=== PATIENT | male | born 1950 | race Caucasian/White ===

== ENCOUNTER → 2019-03-18 09:59 | Outpatient (CLI) | payer MEDICARE, OTHER, SELFPAY ==
[2019-03-18 11:43] LABS: Add Manual Diff / Slide Review NO; Basophils Absolute Auto 0 /uL (0-100); Basophils Percent Auto 0.7 % (0-2); Eosinophils Absolute Auto 100 /uL (0-450); Eosinophils Percent Auto 1.7 % (2-4); Hematocrit 51.5 % (41-53); Hemoglobin 17.3 g/dL (13.5-17.5); Lymphocytes Absolute Auto 1400 /uL (1100-4500); Lymphocytes Percent Auto 22.7 % (25-40); Mean Corpuscular HGB Conc 33.6 % (30-36); Mean Corpuscular Hemoglobin 36.5 PG (26-34); Mean Corpuscular Volume 108.7 fL (80-100); Monocytes Absolute Auto 600 /uL (0-900); Monocytes Percent Auto 9.7 % (3-14); Neutrophils Absolute Auto 4100 /uL (1500-7000); Neutrophils Percent Auto 65.2 % (50-75); Platelet Count 252 X10^3/uL (150-400); Red Blood Cell Count 4.74 X10^6/uL (4.5-5.9); Red Cell Distribution Width 13.6 % (11.6-14.8); White Blood Cell Count 6.3 X10^3/uL (4.5-11.0)
[2019-03-18 12:14] LABS: Carbon Dioxide 28 mmol/L (22-32); Chloride 100 mmol/L (98-107); HEMOLYSIS < 15 (0-50); Potassium 3.8 mmol/L (3.4-5.1); Sodium 137 mmol/L (137-145)
== END ==
PROVIDERS: PCP Physician Assistant Medical; Visit Provider Orthopaedic Surgery
DX: M16.10 Unilateral primary osteoarthritis, unspecified hip (principal); Z01.818 Encounter for other preprocedural examination; Z01.812 Encounter for preprocedural laboratory examination
CPT/HCPCS: 36415; 80051; 85025; 93005; 93010

== ENCOUNTER 2019-04-21 09:09 | Inpatient (IN) | payer MEDICARE, OTHER, SELFPAY ==
[2019-04-08 09:49] VITALS: BMI 45.3
[2019-04-21] VITALS (13 sets, daily range): BP systolic 89–159; BP diastolic 52–93; PULSE 64–93; RESP 12–18; TEMP 35.6–37.2; O2SAT 93–100; BMI 44.2
--- NOTE | 2019-04-21 06:00 | DI.RAD.S_ITS ---
PROCEDURE: XR PELVIS 1-2V INDICATIONS: post op left MANAN TECHNIQUE: Single frontal view of the pelvis acquired. COMPARISON: [facility] [place], CR, XR PELVIS 1 OR 2 VIEWS, 03/18/2019, 8:42. FINDINGS: Bones: No fractures or dislocations. No suspicious bony lesions. No left total hip arthroplasty, previously present right total hip arthroplasty. Soft tissues: Visualized bowel gas pattern is normal. No suspicious soft tissue calcifications. IMPRESSION: Bilateral hip arthroplasties are present, the left arthroplasty is new, normal alignment is present bilaterally. Dictated by: Demarcus Argueta M.D. on 04/21/2019 at 15:48 Approved by: Demarcus Argueta M.D. on 04/21/2019 at 15:49
[2019-04-21] MEDS: ACETAMINOPHEN 325 MG TABLET 975 MG PO ×2 (09:47→21:07)
[2019-04-21] MEDS: PREGABALIN 75 MG CAPSULE PO (09:47)
[2019-04-21] MEDS: CELECOXIB 200 MG CAPSULE PO (09:47)
--- NOTE | 2019-04-21 09:53 | PM.PREOP ---
Pre-operative Note Interval Note History & Physical reviewed/Exam performed by Physician: Yes Changes to H&P: No
[2019-04-21] MEDS: LACTATED RINGERS 1,000 ML 42 ML IV ×2 (10:00→14:16)
[2019-04-21] MEDS: CEFAZOLIN 2 GM/100 ML FROZ.PIGGY IV ×2 (13:15→21:11)
--- NOTE | 2019-04-21 13:54 | SUR.OPER ---
Lateral on padded OR bed. Gel axillary roll. Arms secured on padded armboard with pillow supporting top arm. Padded hip positioner braces x4 - anterior and posterior chest and pelvis. Additional gel pad used anterior pelvis. Gel pad under bottom leg from knee to foot and secured with tape over sheet.
[2019-04-21] MEDS: TRANEXAMIC ACID 1,000 MG VIAL 2000 MG INJ ×2 (14:00→15:00)
[2019-04-21] MEDS: ROPIVACAINE 0.5% PF 5 MG/ML 20ML VIAL 10 ML INJ (14:00)
[2019-04-21] MEDS: KETOROLAC 30 MG/ML VIAL IV (14:01)
[2019-04-21] MEDS: MORPHINE 4 MG/ML INJ INJ (14:01)
--- NOTE | 2019-04-21 15:26 | P.OP_ITS ---
Operative Date/Time/Diagnoses Date of procedure: 04/21/19 Time of procedure: 15:20 Pre-op diagnosis: Left hip degenerative joint disease Post-op diagnosis: same Procedure & Clinicians Procedure: Left total hip arthroplasty (CPT code 72758 with assistance) Same procedure as scheduled: Yes Indications: Patient is an 68-year-old male with severe left hip DJD. The patient has pain with activities and at rest, limited ambulation and activity tolerance, difficulties with ADLs, and failure of conservative treatment. We have discussed the nature of condition, treatment options, risks and benefits, and patient elects to proceed with total hip arthroplasty and gives informed consent. Surgeon: Adrian Almaguer Senior Clinical Consultant: Maggie Duke Anesthesia Type: General and Spinal Operative Notes Closure Type: primary Specimen(s): none sent Prosthetic devices, grafts, tissues, transplants, or devices: Acetabulum: Ellison and Nephew R3 acetabular component size 52 mm Femoral component: Ellison and Nephew Anthology stem size 7 with standard offset Femoral head: 36 mm + 0 Oxinium Estimated Blood Loss (mL): 250 Blood products transfused: none Procedure in detail: After satisfaction induction of anesthetic, and administration of IV antibiotics, the patient was positioned in the lateral decubitus position with all bony prominences well padded and pelvic position secured using a hip hand stripper positioning device. Left hip and lower extremity prepped and draped in the usual sterile fashion, 1st dose of intravenous tranexamic acid was administered, then a longitudinal incision was created centered over the greater trochanter and carried sharply through the skin and subcutaneous tissues down to the fascia angela which was divided longitudinally and retracted with a Charnley retractor. External rotators visualize, cut, tagged, and retracted posteriorly, then the capsule was cut in a T-type fashion with the corners tagged and retracted. Hip was dislocated and femoral neck cut made according to preoperative templating. Acetabular retractors then placed, and the acetabular labrum and osteophytes were excised. The acetabulum was then sequentially reamed to 51 mm with an excellent circumferential ream and fit with the trial. The trial component was removed and a permanent size 52 mm Ellison and Nephew R3 acetabular component was selected, positioned, and impacted with satisfactory position and fixation achieved. Permanent liner was then inserted with the elevated lip directed posteriorly. Soft tissue then removed off the lateral femoral neck in the lateral neck was entered using a box osteotome. T- handled reamers placed down the canal followed by sequential broaching to 7 with the final broach left in place for trial reduction which demonstrated excellent leg length, range of motion, and stability characteristics with a 36 mm +0 trial ball. The trial and broach were removed, and a permanent size 7 Ellison and Nephew Synergy stem was selected and inserted with excellent position and fixation achieved. Another trial reduction yielded the above characteristics so the trial ball was exchanged for a permanent 36 mm +0 Oxinium ball. The hip was irrigated and reduced and excellent leg length range of motion and stability characteristics were achieved and maintained. Periarticular tissues were infiltrated with ropivacaine, morphine, and Toradol. The hip was copiously irrigated, and the capsule repaired with #2 Ethibond, and the piriformis was repaired back to the greater trochanter with the same. Fascia angela closed with interrupted #1 Ethibond sutures, and the subcutaneous tissues were closed in 2 layers of 0 Vicryl and 2 0 Vicryl. Skin was closed with ac and sterile dressings applied. Second dose of tranexamic acid was administered intravenously, and the anesthetic was terminated. Complications: none Condition: stable Disposition: PACU Plan for aftercare: Patient will be admitted to the acute care [facility], and anticipate discharge on postop day 1 or 2 with follow-up in office in 10-14 days. Outpatient physical therapy will be arranged and patient will continue to observe posterior hip precautions. Patient will continue use of postoperative Lovenox for 10 days postop.
[2019-04-21] MEDS: LACTATED RINGERS 1,000 ML 125 ML IV (16:19)
[2019-04-21] MEDS: buPROPion SR 150 MG TAB PO (21:07)
[2019-04-22] VITALS (7 sets, daily range): BP systolic 112–140; BP diastolic 58–90; PULSE 74–94; RESP 14–18; TEMP 36.4–37.1; O2SAT 96–98
[2019-04-22] MEDS: OXYCODONE IR 5 MG TABLET PO ×6 (00:56→22:15)
[2019-04-22] MEDS: hydrOXYzine pamoate 25 MG CAPSULE PO ×2 (03:49→23:09)
[2019-04-22 05:24] LABS: Hematocrit 42.9 % (41-53); Hemoglobin 14.7 g/dL (13.5-17.5)
[2019-04-22] MEDS: CEFAZOLIN 2 GM/100 ML FROZ.PIGGY IV (05:35)
--- NOTE | 2019-04-22 05:55 | PC.NURSE ---
Pt is AxOx3, VSS, tolerating room air and CPAP HS. Some complaints of left hip pain, managed with Percolone and Vistaril. Pt was having trouble voiding after surgery, but finally voided 450mL of very dark omari urine. PO intake encouraged, IVF continued. No nausea. Up with 2person assist to BSC and FWW. Pt tolerated fairly well, still very weak on his legs. SCDs b/l applied and on throughout the night. Bulky hip dressing is clean, dry, intact. Linear abrasion to abdominal pannus, looks like chaffing. Triple ABX ointment applied. CIWA=0
[2019-04-22] MEDS: LACTATED RINGERS 1,000 ML 125 ML IV (06:57)
--- NOTE | 2019-04-22 09:07 | PM.DS.1 ---
History of Present Illness Date Patient Seen: 04/22/19 Time Patient Seen: 09:08 Chief complaint: [id number] LEFT MANAN Narrative: Hospital day 2, postop day 1 following left posterior total hip arthroplasty by Dr. Almaguer. Patient states he is doing well at this time. Having mild pain. States he did not sleep much last night. Vistaril was helpful for sleep. He has not had any physical therapy yet. He is a [facility] patient and anticipates going home today. He lives on [facility]. His sister is going to stay with him for the next several days. He is scheduled for physical therapy at [facility]. Discharge Providers Date of admission: 04/21/19 09:09 Discharge Date: 04/22/19 Primary care physician: SIMONA Jones Consults: 04/21/19 16:01 Consult to Discharge Planning Routine Comment: Consult to Physical Therapy Evaluate & Treat Comment: Physician Instructions: post op MANAN protocol Consult to Respiratory Therapy Evaluate & Treat Comment: Physician Instructions: Evaluate and treat 04/21/19 16:16 Consult to Tumor Registrar Routine Comment: Discharge provider: Sanchez Stone PA-C Summary Discharge Diagnosis: Status post left posterior total hip arthroplasty Hospital Course: Patient brought to hospital on 04/21/2019 for above-noted surgery. He remained stable postoperatively. Progressed with physical therapy. Ready for discharge home on postop day 1. Status at Discharge Cognitive/behavioral status at discharge: oriented Functional status at discharge: uses cane/walker Overall status at discharge: patient is progressing back to baseline Time Spent with Patient Less than 30 minutes Exam Vital Signs (past 8 hours): - 04/22/19 03:55 04/22/19 07:45 Temperature 97.6 F 97.7 F Pulse Rate 74 79 Respiratory Rate 16 16 Blood Pressure 140/90 121/69 Pulse Oximetry 98 98 Oxygen Delivery Method Room Air,CPAP Oxygen Flow Rate 0 Narrative Exam Narrative: Alert, oriented no acute distress lying in bed. Legs. Bulky dressing to left hip is dry without drainage or inflammation. No calf pain or swelling. Pulses symmetrical. Objective Labs Result Diagrams: 04/22/19 04:45 Labs: Laboratory Results - last 24 hr 04/22/19 04:45 Hgb 14.7 Hct 42.9 Discharge Plan Discharge Plan Discharge comment: Discharge home today after cleared by PT. CovRsite dressing to left hip incision. Left posterior total hip arthroplasty protocol for x6 weeks postop. He is a [facility] patient and has postoperative prescriptions for oxycodone and Vistaril at home. Discharge Med Rec/Prescriptions Prescriptions: New enoxaparin [Lovenox] 40 mg/0.4 mL Syringe 40 mg subcut DAILY Qty: 9 RF: 0 Continued bupropion HCl 150 mg Tablet Sustained-Release 12 Hr 150 mg PO BID RF: 0 hydrocodone-acetaminophen 5-325 mg Tablet 1 - 2 tab PO Q4-6H PRN (Reason: Pain) RF: 0 ibuprofen 200 mg Capsule 800 mg PO DAILY PRN (Reason: Pain) RF: 0 allopurinol 300 mg Tablet 300 mg PO DAILY RF: 0 fluticasone propionate [Flonase Allergy Relief] 50 mcg/actuation [place],Suspension 2 spray INTRANASAL DAILY PRN (Reason: Seasonal allergies) RF: 0 omeprazole 20 mg Capsule,Delayed Release(Dr/Ec) 20 mg PO DAILY RF: 0 losartan 25 mg tablet 1 tab PO DAILY RF: 0 Follow up/Referrals: Tenisha Bolden ARNP [Primary Care Provider] - Discharge Orders: Discharge (Order); Ordered 04/22/19 Ordered By: Sanchez Stone Provider Discharge Instructions Diet: Diet as Tolerated Activity: Ambulate as tolerated. Use walker as needed. Posterior total hip arthroplasty protocol x6 weeks postop. Cold/Heat Therapy: Cold pack to left hip as needed. Skin/Wound/Dressing Care Report to your healthcare provider any signs of infection, such as:: chills, fever, night sweats, increased pain, unusual drainage and unusual redness Dressing: Keep CovRsite dressing to the left hip incision until postop visit. Patient may shower without shower going directly on the dressing. Visit Report/Discharge Packet Instructions: DI for Hip Replacement Discharge Data Primary Care Provider: Tenisha Bolden Attending Provider: Adrian Almaguer Admit Date/Time: 04/21/19 09:09 Quality VTE Deep Vein Thrombosis/Pulmonary Embolism Present on Admission: No
[2019-04-22] MEDS: PANTOPRAZOLE 20 MG TABLET PO (09:09)
[2019-04-22] MEDS: ENOXAPARIN 40 MG/0.4 ML SYRINGE SUBCUT (09:09)
[2019-04-22] MEDS: buPROPion SR 150 MG TAB PO ×2 (09:10→23:14)
[2019-04-22] MEDS: ACETAMINOPHEN 325 MG TABLET 975 MG PO ×3 (09:10→19:09)
[2019-04-22] MEDS: LOSARTAN 25 MG TABLET PO (09:10)
[2019-04-22] MEDS: ALLOPURINOL 300 MG TABLET PO (09:10)
--- NOTE | 2019-04-22 09:11 | P.DS_ITS ---
History of Present Illness Date Patient Seen: 04/22/19 Time Patient Seen: 09:08 Chief complaint: [id number] LEFT MANAN Narrative: Hospital day 2, postop day 1 following left posterior total hip arth roplasty by Dr. Almaguer. Patient states he is doing well at this time. Having mild pain. States he did not sleep much last night. Vistaril was helpful for sleep. He has not had any physical therapy yet. He is a [facility] patient and anticipates going home today. He lives on [facility]. His sister is going to stay with him for the next several days. He is scheduled for physical therapy at [facility]. Discharge Providers Date of admission: 04/21/19 09:09 Discharge Date: 04/22/19 Primary care physician: SIMONA Jones Consults: 04/21/19 16:01 Consult to Discharge Planning Routine Comment: Consult to Physical Therapy Evaluate & Treat Comment: Physician Instructions: post op MANAN protocol Consult to Respiratory Therapy Evaluate & Treat Comment: Physician Instructions: Evaluate and treat 04/21/19 16:16 Consult to Buffing Turner And Counter Routine Comment: Discharge provider: Sanchez Stone PA-C Summary Discharge Diagnosis: Status post left posterior total hip arthroplasty Hospital Course: Patient brought to hospital on 04/21/2019 for above-noted surgery. He remained stable postoperatively. Progressed with physical therapy. Ready for discharge home on postop day 1. Status at Discharge Cognitive/behavioral status at discharge: oriented Functional status at discharge: uses cane/walker Overall status at discharge: patient is progressing back to baseline Time Spent with Patient Less than 30 minutes Exam Vital Signs (past 8 hours): - 04/22/19 03:55 04/22/19 07:45 Temperature 97.6 F 97.7 F Pulse Rate 74 79 Respiratory Rate 16 16 Blood Pressure 140/90 121/69 Pulse Oximetry 98 98 Oxygen Delivery Method Room Air,CPAP Oxygen Flow Rate 0 Narrative Exam Narrative: Alert, oriented no acute distress lying in bed. Legs. Bulky dressing to left hip is dry without drainage or inflammation. No calf pain or swelling. Pulses symmetrical. Objective Labs Result Diagrams: 04/22/19 04:45 Labs: Laboratory Results - last 24 hr 04/22/19 04:45 Hgb 14.7 Hct 42.9 Discharge Plan Discharge Plan Discharge comment: Discharge home today after cleared by PT. CovRsite dressing to left hip incision. Left posterior total hip arthroplasty protocol for x6 weeks postop. He is a [facility] patient and has postoperative prescriptions for oxycodone and Vistaril at home. Discharge Med Rec/Prescriptions Prescriptions: New enoxaparin [Lovenox] 40 mg/0.4 mL Syringe 40 mg subcut DAILY Qty: 9 RF: 0 Continued bupropion HCl 150 mg Tablet Sustained-Release 12 Hr 150 mg PO BID RF: 0 hydrocodone-acetaminophen 5-325 mg Tablet 1 - 2 tab PO Q4-6H PRN (Reason: Pain) RF: 0 ibuprofen 200 mg Capsule 800 mg PO DAILY PRN (Reason: Pain) RF: 0 allopurinol 300 mg Tablet 300 mg PO DAILY RF: 0 fluticasone propionate [Flonase Allergy Relief] 50 mcg/actuation [place],Suspension 2 spray INTRANASAL DAILY PRN (Reason: Seasonal allergies) RF: 0 omeprazole 20 mg Capsule,Delayed Release(Dr/Ec) 20 mg PO DAILY RF: 0 losartan 25 mg tablet 1 tab PO DAILY RF: 0 Follow up/Referrals: Tenisha Bolden ARNP [Primary Care Provider] - Discharge Orders: Discharge (Order); Ordered 04/22/19 Ordered By: Sanchez Stone Provider Discharge Instructions Diet: Diet as Tolerated Activity: Ambulate as tolerated. Use walker as needed. Posterior total hip arthroplasty protocol x6 weeks postop. Cold/Heat Therapy: Cold pack to left hip as needed. Skin/Wound/Dressing Care Report to your healthcare provider any signs of infection, such as:: chills, fever, night sweats, increased pain, unusual drainage and unusual redness Dressing: Keep CovRsite dressing to the left hip incision until postop visit. Patient may shower without shower going directly on the dressing. Visit Report/Discharge Packet Instructions: DI for Hip Replacement Discharge Data Primary Care Provider: Tenisha Bolden Attending Provider: Adrian Almaguer Admit Date/Time: 04/21/19 09:09 Quality VTE Deep Vein Thrombosis/Pulmonary Embolism Present on Admission: No
--- NOTE | 2019-04-22 09:15 | CM.DANOTE ---
DCP/Assessment: Reviewed chart. Patient is a 68yr old male admitted to [facility] for left MANAN performed on 04-21-[address] Almaguer. Primary payor is 1)Medicare 2)[employer]. PCP is SIMONA Jones. Met with patient explained CM/SW role. Patient alert and oriented, resting comfortably in bed at time of visit. Patient reports that he hopes to go home today. Patient lives alone in [place]. Prior to admit patient was I in ADL's. Patient has walker for home use. Patient reports that he has 2 steps to enter his 1 level home. Patient uses CPAP at baseline at night. Patient has sister/Minda that will be staying with him during recovery. At this time patient does not anticipate any d/c planning needs. Patient with therapy evaluation pending. Outpatient therapy has been arranged at [facility]. P: Anticipate home when stable. MARIANNA Pineda Discharge Planning/Care Management CM Discharge Assessment Start: 04/22/19 09:12 Freq: Status: Active Protocol: Document 04/22/19 09:12 KJS (Rec: 04/22/19 09:15 KJS [id number]) Discharge Planning Assessment Assigned Airplane Fueler MARIANNA Pineda Contact Information Minda Bishop (sister) [phone] Advance Directives? No: Declines further information History Provided By Patient Medical Record Prior Living Arrangements House Household Members none Type of transporation used prior to Drives own vehicle admit Independent with ADL's Yes Is patient alert and oriented? Yes Caregiver for Another No DME Already Rented / Owned FWW / Walker Patient/Family Preference OP PT Therapy Barriers to Discharge No Discharge Plan Home Transportation Arrangement Family to provide transport. Referrals Initiated None needed Whiteboard Updated in Patient Room with Yes name and ext. # of Airplane Fueler Review Status In Process Next Review Type Continued Stay Review Pre-Anesthesia Assessment Start: 04/08/19 09:48 Freq: Status: Active Protocol: Document 04/08/19 09:49 CAB (Rec: 04/08/19 10:53 CAB [id number]) Pre-Anesthesia Assessment Patient Also Known As (IRON Corcoran Patient Information Reviewed Via Phone Assessment Assessment Completed With Patient Diagnostic Results CBC EKG Electrolytes Comment Labs/EKG @ [facility] 03/18/19 Primary Care Provider Tenisha Bolden Seen Specialist in Last 12 Months Yes Specialist Seen Orthopedist Primary Language Swedish Mobile Patrol Officer Required No Height 167.64 cm Weight 127.459 kg Body Mass Index (BMI) 45.3 Hearing Ability Normal Visual Impairment No Limitations Visual Assist None Dentition Type Teeth, Natural Present Teeth, Missing Barriers to Learning None Hx Anesthesia Reactions No Hx Family Anesthesia Reaction No Hx Malignant Hyperthermia No Hx Blood Transfusions No Anesthesia Review Requested Yes: Surgeon requested re: Sleep apnea. Production Stage Manager No alcohol intake current alcohol intake frequency 3 or more drinks per day Smoking Status Former smoker Tobacco type cannabis/marijuana how long ago did patient quit smoking Quit 1979 Substance Use Type marijuana Comment Pt advised not to smoke marijuana 24 hours prior to surgery Pain Present Pain Reported Musculoskeletal Symptoms Abnormal Gait Back Pain Difficulty Walking Joint Pain Limited Range of Motion History of Falling (Recent or History of No ) Patient is completely paralyzed or No completely immobile Prosthesis or Orthotic Device Cane Front Wheel Walker Mental Status Oriented to own ability Is patient on oxygen? No Does patient have LUNA/SOB No Hx Sleep Apnea Yes CPAP/BIPAP use prescribed and used routinely Currently Taking a Beta Emily Yes: Propranolol Can You Climb a Flight of Stairs Without No SOB Hx Chest Pain No Hx SOB No Hx Syncope or Dizziness No Anti-Coagulant Therapy No Has a Cotton Weigher No Cardiac Testing No Hx Pacemaker/ICD No Pacemaker Rep Required? No Cardiac Clearance Received Not Applicable Diet Type At Home Regular dysphagia No Bladder Pattern Nocturia Urgency Urinary Catheter Present No Hx Urinary Self Catheterization No Diabetes No Hx Drug Resistant Organism No Presence of External or Internal Medical Yes: CPAP Devices Have you traveled outside the [facility] States in the last 30 days? Marital Status Lives With none Prior Living Arrangements House Number of Floors (Floors) One Floor Support System Sibling(s) Does the Patient Have Assistance After Yes Surgery Patient Discharge Plan Description Return Home Comment Sister will stay w/pt to assist with care Feels Safe in Current Environment Yes Been Physically Hurt or Threatened By a No Person in Current Environment Do you have thoughts of harming yourself None or others? Are you currently considering suicide? No Do you have a plan to hurt yourself or No Plan others? Do You Have Any Spiritual Beliefs That No May Affect Your HC Choices? Do You Have Any Cultural Practices That No May Affect Your HC Choices? Spiritual Referral None Who Can We Speak to About Patient's Care Family, friends Identifying Code for Release of Patient Declines to issue Information Health Care Proxy/Next of Kin Minda (sister) Health Care Proxy Emergency Contact Name Minda (sister) Emergency Contact Advance Directives? No: Declines further information Power of Chipping Machine Operator No PAC Instructions Bring CPAP/BIPAP Durable medical equipment Medications to take/avoid Nasal antibiotic No ETOH/petroleum product on skin DOS NPO Post-op transportation Pre-surgical wash Sturdy shoes/comfortable clothes Do not bring valuables and remove jewelry
--- NOTE | 2019-04-22 09:58 | PC.NURSE ---
Addendum entered by Sherly Spencer R.N. 04/22/19 15:35: Pt medicated with 1 percolone at 1500 along with tylenol for complaints of 8/10 pain. He states that he is going to refuse pt this afternoon as he is hurting to much...Explained the benefits of pt and pt does not seem interested. CIWA score 0x2. Original Note: Pt is A&Ox3, he denies pain at this time. Dressing is bulky and cdi. CMS wnl and pt is taking po percolone for discomfort. He states that this has been working for his discomfort. Will work with pt soon. Pt is also now heplocked and voiding in the urinal well.
--- NOTE | 2019-04-22 10:39 | PT.IIE ---
Current Diagnoses Unilateral primary osteoarthritis, left hip (04/21/19) Trochanteric bursitis, left hip (04/21/19) Surgery Performed Operation Date: 04/21/19 11:45 Actual Procedures p Total Hip Arthroplasty(Left) - Adrian Almaguer MD Surgical History (Last Updated 04/08/19 @ 10:36 by Mona Mukherjee RN) History of nasal surgery (Acute) History of surgery (Acute ~2008) History of total right hip arthroplasty (Acute) Hx of repair of right rotator cuff (Acute) Hx of umbilical hernia repair (Acute) Status post epidural steroid injection (Acute) Medical History (Last Updated 04/08/19 @ 10:24 by Mona Mukherjee RN) Anxiety (Acute) Bone spur (Acute) Depression (Acute) HTN (hypertension) (Acute) Hearing loss (Acute) Lower back pain (Acute) Melanoma (Acute) RLS (restless legs syndrome) (Acute) Sleep apnea (Acute) Physical Therapy Inpatient Evaluation/Re-Eval M1 PT/OT-IP Prior Functional Status Start: 04/22/19 12:30 Freq: NEEDED Status: Active Protocol: Document 04/22/19 10:39 AB (Rec: 04/22/19 13:36 AB [id number]) Medical Review Prior Functional Status Medical History Reviewed Yes Communication able to make needs known Mobility and Gait pt stated that he is independent with all mobilities and ambulation without AD but has to use a SPC/FWW for the last 2 weeks due to hip pain Social History Household Members none Living Arrangements House Number of Floors (Floors) One Floor Number of Stairs To Enter/Railing? has 2 steps from the front with grab bard on the sides of the door 3 platform steps from the garage Home Environment High Toilet Walk in Shower Built-In Shower Seat Home Equipment Front Wheel Walker Four Wheel Walker Straight Cane Hand Held Shower Grab Bars In Shower Employment Status Retired Additional Social History Comment stated that his sister will be staying with him to assist him M2 PT-IP Current Condition Start: 04/22/19 12:30 Freq: NEEDED Status: Active Protocol: Document 04/22/19 10:39 AB (Rec: 04/22/19 13:36 AB [id number]) Physical Therapy Current Condition Current Condition Evaluation Date 04/22/19 Treatment Diagnosis s/p L MANAN posterior approach; difficulty in walking Onset Date 04/21/19 Precautions Posterior Hip Precautions No Hip Flexion > 90 degrees No Hip Internal Rotation No Hip Adduction Weight Bearing Status Weight Bearing Status Weight Bear as Tolerated M3 PT-IP Subjective Start: 04/22/19 12:30 Freq: NEEDED Status: Active Protocol: Document 04/22/19 10:39 AB (Rec: 04/22/19 13:36 AB [id number]) Subjective Physical Therapy Visit Type Type Initial Evaluation Visit Start Time 10:39 Visit Stop Time 11:54 Total Visit Minutes 75 Number of TRANSFER AND LINE UP WORKER Visits 0 Physical Therapy Visit Comments Patient Comments pt agreeable to do PT Therapy Pain Assessment Pain When Pain Assessed At Rest Pain Present Pain Present Pain Reported Location Lt Hip Intensity 5 Scale Used Numeric (1 - 10) Pain Management Techniques Apply Cold Re-positioning Timing of Activity with Medications M4 PT-IP Mobility and Gait Start: 04/22/19 12:30 Freq: NEEDED Status: Active Protocol: Document 04/22/19 10:39 AB (Rec: 04/22/19 13:36 AB [id number]) PT-Bed Mobility Assessment Supine to Sit Supine to Sit Maximum Assistance 1 Person Assistance Head of Bed Elevated Bedrails PT-Transfer Assessment Sit to and From Stand Sit to and from Stand Moderate Assistance Use of Upper Extremities Equipment Transfer Assistive Device Gait Belt Front Wheeled Walker Orthotic/Prosthetic Devices or Brace: No Transfers Transfer Destination Chair Transfer Technique pt ambulated using FWW Transfer Ability Level of Assist Moderate Assistance Maximum Assistance 1 Person Assistance Use of Upper Extremities Comments Mobility Comments pt requires cues to maintain posterior hip precautions. pt completed sit to stand mod and max cues. instructed to take a step and pt with (+) LOB requiring max A and cues. pt is impulsive and has decrease safety awareness. Gait Assessment Gait Gait Assistance Required: Moderate Assistance Distance (Feet) 12 Able to Maintain Weight Bearing Status Yes During Gait Assistive Devices Assistive Device Gait Belt Front Wheeled Walker Orthotic/Prosthetic Devices or Brace: No Gait Deviations General Gait Pattern Antalgic Decreased Stride Length Decreased Feet Clearance Step-to Gait Factors Limiting Gait Function Factors Limiting Gait Function Decreased Activity Tolerance Decreased Strength Difficulty Following Directions Limited Range of Motion Pain Poor Balance Poor Safety Awareness Comments Gait Comments pt requires assist to stabilize L knee due to slight knee buckling noted. pt is impulsive and requires max cues with all tasks. pt also seems to have difficulty following directions affecting safety PT-Balance Assessment Sitting Balance and Reactions Static Sitting Balance Ability Good Dynamic Sitting Balance Ability Good Standing Balance and Reactions Static Standing Balance Ability Fair Dynamic Standing Balance Ability Poor Device Used FWW M5 PT-IP Objective Assessments Start: 04/22/19 12:30 Freq: NEEDED Status: Active Protocol: Document 04/22/19 10:39 AB (Rec: 04/22/19 13:36 AB [id number]) Orientation Orientation/Cognition Level of Alertness Alert Orientation Name Age Place Situation Safety Awareness Decreased Safety Awareness Memory Description Short Term Impaired Gross Range of Motion Lower Extremity ROM Assessment Within Functional Limits Strength Lower Extremity Strength Assessment Left Impaired Hip 3+/5 Knee 3+/5 Coordination Assessment Gross Coordination Gross Coordination WNL Sensation Assessment Sensation Gross Sensation WNL Muscle Tone Muscle Tone WNL Yes M6 PT-IP Treatment Start: 04/22/19 12:30 Freq: NEEDED Status: Active Protocol: Document 04/22/19 10:39 AB (Rec: 04/22/19 13:36 AB [id number]) Physical Therapy Treatment Exercises Exercises Quad Sets Seated Knee Flexion/Extension Education Education Provided Precautions Weight Bearing Status Post-Op Packet Safety M7 PT-IP Assessment and Plan Start: 04/22/19 12:30 Freq: NEEDED Status: Active Protocol: Document 04/22/19 10:39 AB (Rec: 04/22/19 13:36 AB [id number]) PT Summary Assessment and Plan Potential Rehabilitation Potential Good Status of Condition at Evaluation Evolving Summary Impairments Pain ROM Strength Balance Coordination Sensation Tone Cognition Bed Mobility Transfers Gait Activity Tolerance Assessment Summary pt requiring mod to max A with mobility and unsteady on LLE. informed pt that he is not ready to go home at this time and caregiver training need to be conducted as well as stair climbing training. pt stated that his sister will not be able to come in today. will f /u. Goals Bed Mobility Goal Standby Assistance Transfer Goal Standby Assistance Front Wheeled Walker Gait Goal Standby Assistance Front Wheel Walker Gait Distance 100 Other Goals up/down 3 platform steps using FWW CGA Days to Meet Goals 10 Frequency of Treatment Frequency Of Treatment Twice a Day Treatment Plan Physical Therapy Treatment Plan Bed Mobility Training Transfer Training Gait Training Therapeutic Exercise Balance Retraining Post Op Education Discharge Planning Hot or Cold Pack Neuromuscular Re-ed Coordination Retraining Manual Therapy Other Recommendations and Next Treatment caregiver training, ambulation Focus , stair training Recommendations To Nursing Amount of Assist Needed 1 Person Assist Discharge Recommendations PT Discharge Recommendations Home with 24/7 Assist SNF Rehab Outpatient PT Other Discharge Recommendations depending on progress: SNF vs home with 24/7 and outpt PT
--- NOTE | 2019-04-22 17:02 | PT.IPTN ---
Current Diagnoses Unilateral primary osteoarthritis, left hip (04/21/19) Trochanteric bursitis, left hip (04/21/19) Surgery Performed Operation Date: 04/21/19 11:45 Actual Procedures p Total Hip Arthroplasty(Left) - Adrian Almaguer MD Physical Therapy Treatment Note M2 PT-IP Current Condition Start: 04/22/19 12:30 Freq: NEEDED Status: Active Protocol: Document 04/22/19 10:39 AB (Rec: 04/22/19 13:36 AB [id number]) Physical Therapy Current Condition Current Condition Evaluation Date 04/22/19 Treatment Diagnosis s/p L MANAN posterior approach; difficulty in walking Onset Date 04/21/19 Precautions Posterior Hip Precautions No Hip Flexion > 90 degrees No Hip Internal Rotation No Hip Adduction Weight Bearing Status Weight Bearing Status Weight Bear as Tolerated M3 PT-IP Subjective Start: 04/22/19 12:30 Freq: NEEDED Status: Active Protocol: Document 04/22/19 17:01 AB (Rec: 04/22/19 17:02 AB [id number]) Subjective Physical Therapy Visit Type Type Patient Refusal Notes pt refused PT. stated that he is tired and has not gotten any sleep for 33 hours. pt educated on importance of mobility. pt understood but still refused. educated pt to do his exercises in bed. pt agreed.
[2019-04-22] MEDS: ZOLPIDEM 5 MG TABLET PO (19:06)
[2019-04-23] MEDS: OXYCODONE IR 5 MG TABLET PO ×3 (02:11→09:00)
--- NOTE | 2019-04-23 03:14 | PC.NURSE ---
Instructed pt. that he can only turn to his operative side. But he insisted to lay on his Rt. side, states I can't sleep on my left side & it's my leg anyway, I can't get comfortable laying on my lt. side it's hurts too much. Also stated I been told a 100 times to only turn on my operative side, but it hurts so much to sleep on my left side. Instructed to follow total hip precautions to avoid dislocating his prosthesis. Will monitor.
[2019-04-23 03:15] VITALS: BP 125/59; PULSE 99; RESP 18; TEMP 36.7; O2SAT 97
--- NOTE | 2019-04-23 06:11 | PC.NURSE ---
Pt. still anxious & C/O lt. hip pain & discomfort medicated with 5 mg. of Oxycodone. Pulled out his PIV-Saline locked, states I pulled it out because it got caught in the bed rail and I don't want to have another IV, I'm going home today. Co-ordinator aware that pt. has no IV access & instructed me to let his doctor know. Will PA-C know this morning. Will monitor.
--- NOTE | 2019-04-23 07:02 | PC.NURSE ---
NE Stone notified that pt. pulled out his PIV & refused to restart another line.
[2019-04-23 07:45] VITALS: BP 132/78; PULSE 93; RESP 18; TEMP 37; O2SAT 95
[2019-04-23] MEDS: LOSARTAN 25 MG TABLET PO (09:00)
[2019-04-23] MEDS: buPROPion SR 150 MG TAB PO (09:00)
[2019-04-23] MEDS: ALLOPURINOL 300 MG TABLET PO (09:00)
[2019-04-23] MEDS: ENOXAPARIN 40 MG/0.4 ML SYRINGE SUBCUT (09:00)
[2019-04-23] MEDS: ACETAMINOPHEN 325 MG TABLET 975 MG PO (09:00)
[2019-04-23] MEDS: PANTOPRAZOLE 20 MG TABLET PO (09:01)
[2019-04-23] MEDS: SODIUM CHLORIDE 0.9% FLUSH 10 ML IV (09:01)
--- NOTE | 2019-04-23 09:55 | PC.NURSE ---
Pt is awake and states that this is the best morning he has had here so far. Pt was able to get some sleep last night. Just given 1 percolone for discomfort and working with physical therapy. This medication has been effective for pain control. Pts sister here now and physical therapy is in the room showing family member how to move him and transfer pt.
--- NOTE | 2019-04-23 10:07 | PT.IPTN ---
Current Diagnoses Unilateral primary osteoarthritis, left hip (04/21/19) Trochanteric bursitis, left hip (04/21/19) Surgery Performed Operation Date: 04/21/19 11:45 Actual Procedures p Total Hip Arthroplasty(Left) - Adrian Almaguer MD Physical Therapy Treatment Note M2 PT-IP Current Condition Start: 04/22/19 12:30 Freq: NEEDED Status: Active Protocol: Document 04/22/19 10:39 AB (Rec: 04/22/19 13:36 AB [id number]) Physical Therapy Current Condition Current Condition Evaluation Date 04/22/19 Treatment Diagnosis s/p L MANAN posterior approach; difficulty in walking Onset Date 04/21/19 Precautions Posterior Hip Precautions No Hip Flexion > 90 degrees No Hip Internal Rotation No Hip Adduction Weight Bearing Status Weight Bearing Status Weight Bear as Tolerated M3 PT-IP Subjective Start: 04/22/19 12:30 Freq: NEEDED Status: Active Protocol: Document 04/23/19 10:07 AB (Rec: 04/23/19 11:33 AB [id number]) Subjective Physical Therapy Visit Type Type Treatment Note Visit Start Time 10:07 Visit Stop Time 11:07 Total Visit Minutes 61 Number of PIPE ORGAN TUNER AND REPAIRER Visits 0 Physical Therapy Visit Comments Patient Comments pt agreeable to do PT; pt's sister present for caregiver training Therapy Pain Assessment Pain When Pain Assessed At Rest Pain Present Pain Present Pain Reported Location Lt Hip Intensity 5 Scale Used Numeric (1 - 10) Pain Management Techniques Re-positioning Timing of Activity with Medications M4 PT-IP Mobility and Gait Start: 04/22/19 12:30 Freq: NEEDED Status: Active Protocol: Document 04/23/19 10:07 AB (Rec: 04/23/19 11:33 AB [id number]) PT-Bed Mobility Assessment Supine to Sit Supine to Sit Moderate Assistance 1 Person Assistance Sit to Supine Sit to Supine Moderate Assistance 1 Person Assistance PT-Transfer Assessment Sit to and From Stand Sit to and from Stand Contact Guard Assistance Equipment Transfer Assistive Device Gait Belt Front Wheeled Walker Orthotic/Prosthetic Devices or Brace: No Transfers Transfer Technique Stand Step Pivot Transfer Ability Level of Assist Contact Guard Assistance Minimal Assistance Comments Mobility Comments caregiver training conducted with pt and pt's sister. educated on how to use safety belt. educated on how to assist pt with bed mobility, transfers and ambulation and how to cue. pt. pt's sister was able to assist pt safely with bed mobility, transfers and ambulation. Gait Assessment Gait Gait Assistance Required: Contact Guard Assist Minimum Assistance Distance (Feet) 60 Able to Maintain Weight Bearing Status Yes During Gait Assistive Devices Assistive Device Gait Belt Front Wheeled Walker Orthotic/Prosthetic Devices or Brace: No Gait Deviations General Gait Pattern Antalgic Decreased Stride Length Decreased Feet Clearance Step-to Gait Factors Limiting Gait Function Factors Limiting Gait Function Decreased Activity Tolerance Decreased Strength Pain Poor Balance Comments Gait Comments pt completed ambulation in the room using FWW ~ 30 ft and in the hallway 60+50 ft using FWW requiring CGA to min A and cues to activate L quads. pt 's sister was able to assist pt safely. Stair Climbing Assessment Evaluation Level of Assist On Stairs Minimal Assistance Moderate Assistance Devices Stair Climbing Assistive Devices Front Wheel Walker Technique/Endurance Stair Climbing Direction Ascend and Descend Stair Climbing Technique Step to Step Number of Steps Climbed 1 Stair Climbing Set # Repetitions (reps) 3 Comments Stair Climbing Comments pt completed up/down platform step using FWW going backwards due to pt's decrease L quad strength. pt completed requiring min to mod A and max cues. Pt's sister was able to assist pt safely. M5 PT-IP Objective Assessments Start: 04/22/19 12:30 Freq: NEEDED Status: Active Protocol: Document 04/22/19 10:39 AB (Rec: 04/22/19 13:36 AB [id number]) Orientation Orientation/Cognition Level of Alertness Alert Orientation Name Age Place Situation Safety Awareness Decreased Safety Awareness Memory Description Short Term Impaired Gross Range of Motion Lower Extremity ROM Assessment Within Functional Limits Strength Lower Extremity Strength Assessment Left Impaired Hip 3+/5 Knee 3+/5 Coordination Assessment Gross Coordination Gross Coordination WNL Sensation Assessment Sensation Gross Sensation WNL Muscle Tone Muscle Tone WNL Yes M6 PT-IP Treatment Start: 04/22/19 12:30 Freq: NEEDED Status: Active Protocol: Document 04/23/19 10:07 AB (Rec: 04/23/19 11:33 AB [id number]) Physical Therapy Treatment Education Education Provided Precautions Weight Bearing Status Safety M7 PT-IP Assessment and Plan Start: 04/22/19 12:30 Freq: NEEDED Status: Active Protocol: Document 04/23/19 10:07 AB (Rec: 04/23/19 11:33 AB [id number]) PT Summary Assessment and Plan Potential Rehabilitation Potential Good Summary Impairments Pain ROM Strength Balance Coordination Sensation Tone Cognition Bed Mobility Transfers Gait Activity Tolerance Progress Towards Goals Slow Progress due to Activity Tolerance Assessment Summary caregiver training completed and pt's sister was able to assist pt safely. pt may go home when medically stable. Goals Bed Mobility Goal Standby Assistance Transfer Goal Standby Assistance Front Wheeled Walker Gait Goal Standby Assistance Front Wheel Walker Gait Distance 100 Other Goals up/down 3 platform steps using FWW CGA Days to Meet Goals 10 Frequency of Treatment Frequency Of Treatment Twice a Day Treatment Plan Physical Therapy Treatment Plan Bed Mobility Training Transfer Training Gait Training Therapeutic Exercise Balance Retraining Post Op Education Discharge Planning Hot or Cold Pack Neuromuscular Re-ed Coordination Retraining Manual Therapy Other Recommendations and Next Treatment caregiver training, ambulation Focus , stair training Recommendations To Nursing Amount of Assist Needed 1 Person Assist Discharge Recommendations PT Discharge Recommendations Home with Assistance Outpatient PT
== END 2019-04-23 12:34 | disposition home or self-care (01) | DRG 470 ==
PROVIDERS: Admitting Provider Orthopaedic Surgery; PCP Nurse Practitioner; Visit Provider Orthopaedic Surgery
PROC: 0SRB0JZ Replacement of Left Hip Joint with Synthetic Substitute, Open Approach (ICD-10-PCS; CPT 27130; principal; 2019-04-21 11:45)
DX: M16.12 Unilateral primary osteoarthritis, left hip (principal); Z68.41 Body mass index [BMI] 40.0-44.9, adult; G47.33 Obstructive sleep apnea (adult) (pediatric); I10 Essential (primary) hypertension; E66.01 Morbid (severe) obesity due to excess calories; F12.90 Cannabis use, unspecified, uncomplicated; Z87.891 Personal history of nicotine dependence
CPT/HCPCS: 36415; 72170; 85014; 85018; 97116; 97162; 97530; C1776; J0690; J1100; J1650; J1885; J2250; J2270; J2405; J2704; J3010

== ENCOUNTER → 2024-05-12 09:34 | Outpatient (CLI) | payer MEDICARE, SELFPAY ==
[2019-04-21 09:13] VITALS: BMI 44.2
--- NOTE | 2024-05-12 09:37 | DI.RAD.S_ITS ---
PROCEDURE: XR LUMBAR SPINE MIN 4V INDICATIONS: low back pain TECHNIQUE: 5 views of the lumbar spine were acquired, including bilateral oblique views.>> COMPARISON: None. FINDINGS: Bones: 5 nonrib-bearing vertebrae are present. There is normal bony alignment. No vertebral body compression fractures. Severe degenerative disc disease is especially prominent at L4-L5 and L5-S1. Bilateral total hip arthroplasty hardware is partially visualized. Soft tissues: Overlying bowel gas pattern is normal. No suspicious soft tissue calcifications. IMPRESSION: Degenerative disc disease with no acute osseous abnormality. Dictated by: Aleksander Borrego M.D. on 05/12/2024 at 12:19 Approved by: Aleksander Borrego M.D. on 05/12/2024 at 12:25
== END ==
PROVIDERS: PCP Nurse Practitioner Family; Referring Provider Physical Medicine & Rehabilitation; Visit Provider Physical Medicine & Rehabilitation
DX: M51.36 Other intervertebral disc degeneration, lumbar region (principal); M51.37 Other intervertebral disc degeneration, lumbosacral region; M54.50 Low back pain, unspecified; M48.062 Spinal stenosis, lumbar region with neurogenic claudication; G47.30 Sleep apnea, unspecified; H91.93 Unspecified hearing loss, bilateral; F41.9 Anxiety disorder, unspecified; F32.89 Other specified depressive episodes; I10 Essential (primary) hypertension; Z86.718 Personal history of other venous thrombosis and embolism; Z86.711 Personal history of pulmonary embolism; Z98.890 Other specified postprocedural states; Z87.19 Personal history of other diseases of the digestive system; Z96.641 Presence of right artificial hip joint; Z92.241 Personal history of systemic steroid therapy
CPT/HCPCS: 72110; 99215